=== PATIENT | female | born 1965 | race Two or more races ===

== ENCOUNTER 2017-10-22 08:43 | Emergency (ER) | payer BC ==
[2017-10-22] MEDS ORDERED: KETOROLAC 60 MG/2 ML INJ. (08:59)
[2017-10-22] MEDS: KETOROLAC 60 MG/2 ML INJ. IM (09:10)
== END 2017-10-22 10:13 | disposition home or self-care (01) ==
LOC: ER 08:43
DX: S16.1XXA Strain of muscle, fascia and tendon at neck level, initial encounter (principal); X58.XXXA Exposure to other specified factors, initial encounter; Y93.89 Activity, other specified; Y92.89 Other specified places as the place of occurrence of the external cause; Y99.8 Other external cause status
CPT/HCPCS: 72040; 96372; 99284; J1885